=== PATIENT | female | born 1995 | race Caucasian/White ===

== ENCOUNTER 2017-06-26 19:31 | Emergency (ER) | payer OTHER ==
[~2017-06-26] VITALS: Ht 157.5 cm; Wt 66.7 kg
[2017-06-26] MEDS ORDERED: FLUOXETINE HCL20 MG PO (19:45)
[2017-06-26] MEDS ORDERED: LORAZEPAM2 MG PO (19:45)
== END 2017-06-26 22:26 | disposition home or self-care (01) ==
LOC: ED 19:31
DX: R10.9 Unspecified abdominal pain (principal); R10.813 Right lower quadrant abdominal tenderness; M54.5 Low back pain; Z88.1 Allergy status to other antibiotic agents; F41.9 Anxiety disorder, unspecified; Z79.899 Other long term (current) drug therapy
CPT/HCPCS: 74176; 80053; 81001; 83690; 84703; 85025; 96374; 96375; 99284; J1885; J2405

== ENCOUNTER 2018-02-11 17:45 | Emergency (ER) | payer OTHER ==
[~2018-02-11] VITALS: Ht 157.5 cm; Wt 65.6 kg
[~2018-02-11 17:45] MED LIST: FLUOXETINE HCL20 MG PO; LORAZEPAM2 MG PO
[2018-02-11] MEDS ORDERED: CLARITIN10 M2 PO (18:04)
[2018-02-11] MEDS ORDERED: SERTRALINE HCL50 MG PO (18:04)
== END 2018-02-11 20:35 | disposition home or self-care (01) ==
LOC: ED 17:45
DX: R51 Headache (principal); F41.9 Anxiety disorder, unspecified; Z88.1 Allergy status to other antibiotic agents; Z88.8 Allergy status to other drugs, medicaments and biological substances; Z79.899 Other long term (current) drug therapy
CPT/HCPCS: 80053; 81001; 85025; 96361; 96374; 96375; 99284; J1885; J2405; J7030